=== PATIENT | female | born 1960 | race Caucasian/White ===

== ENCOUNTER 2017-12-12 09:16 | Emergency (ER) | payer SELFPAY ==
[2017-12-12 09:37] VITALS: BP 137/83
[2017-12-12 10:31] LABS: Basophils % (Auto) 0.7 % (0.0-1.8); Eosinophils # (Auto) 0.1 K/mm3 (0.0-0.4); Eosinophils % (Auto) 1.5 % (0.0-4.3); Hematocrit 40.5 % (30.3-42.9); Hemoglobin 14.4 gm/dl (10.1-14.3); Lymphocytes # (Auto) 1.8 K/mm3 (1.2-5.4); Lymphocytes % (Auto) 32.6 % (13.4-35.0); Mean Corpuscular HGB Conc 36 % (30-34); Mean Corpuscular Hemoglobin 33 pg (28-32); Mean Corpuscular Volume 91 fl (79-97); Monocytes # (Auto) 0.4 K/mm3 (0.0-0.8); Monocytes % (Auto) 6.9 % (0.0-7.3); Platelet Count 293 K/mm3 (140-440); Red Blood Count 4.43 M/mm3 (3.65-5.03); Red Cell Distribution Width 12.7 % (13.2-15.2)
--- NOTE | 2017-12-12 10:50 | Emergency Department Report ---
ED General Adult HPI - General Chief complaint: Abdominal Pain Stated complaint: RIGHT LOWER ABD PAIN Time Seen by Provider: 12/12/17 10:10 Source: patient Mode of arrival: Ambulatory Limitations: No Limitations, Language Barrier - History of Present Illness Initial comments: Patient is a 57-year-old female from the [facility] who states that she has a known right sided inguinal hernia. This is secondary to the surgery she had in the past. Patient states she is here working and states that when she is on her feet long periods of time the hernia gets bigger and gives him some discomfort. Patient states his Bensel no nausea vomiting or diarrhea. Patient states the discomfort has been worse for the past 4 days just because of her activities. Patient is here for a note stating that she does cannot go back to work and that she needs to have surgery. - Related Data Previous Rx's Medication Instructions Recorded Last Taken Type HYDROcodone/APAP 5-325 [Winston 1 each PO QHS PRN #10 tablet 01/13/15 Unknown Rx 5/325] Ibuprofen [Motrin] 800 mg PO Q8H PRN #21 tablet 01/13/15 Unknown Rx Sulfamethoxazole/Trimethoprim 1 each PO BID #14 tablet 01/13/15 Unknown Rx [Bactrim Ds] Allergies Allergy/AdvReac Type Severity Reaction Status Date / Time No Known Allergies Allergy Unverified 01/13/15 11:01 ED Review of Systems ROS: Stated complaint: RIGHT LOWER ABD PAIN Other details as noted in HPI Comment: All other systems reviewed and negative ED Past Medical Hx - Past Medical History Previous Medical History?: Yes Additional medical history: 1 vaginal delivery - Surgical History Past Surgical History?: Yes Additional Surgical History: 2 C-sections - Social History Smoking Status: Never Smoker Substance Use Type: Alcohol - Medications Home Medications: Home Medications Medication Instructions Recorded Confirmed Last Taken Type HYDROcodone/APAP 5-325 [Winston 1 each PO QHS PRN #10 tablet 01/13/15 Unknown Rx 5/325] Ibuprofen [Motrin] 800 mg PO Q8H PRN #21 tablet 01/13/15 Unknown Rx Sulfamethoxazole/Trimethoprim 1 each PO BID #14 tablet 01/13/15 Unknown Rx [Bactrim Ds] ED Physical Exam - General Limitations: No Limitations, Language Barrier General appearance: alert, in no apparent distress - Head Head exam: Present: atraumatic, normocephalic - Eye Eye exam: Present: normal appearance - ENT ENT exam: Present: mucous membranes moist - Neck Neck exam: Present: normal inspection - Respiratory Respiratory exam: Present: normal lung sounds bilaterally. Absent: respiratory distress, wheezes, rales, rhonchi - Cardiovascular Cardiovascular Exam: Present: regular rate, normal rhythm. Absent: systolic murmur, diastolic murmur, rubs, gallop - GI/Abdominal GI/Abdominal exam: Present: soft, normal bowel sounds, other (patient has a midline scar near the umbilicus. Patient is laying flat at the time of the exam and states that in the right inguinal area she does sometimes have a bulging which is not out at the moment.). Absent: distended, tenderness, guarding, rebound - Extremities Exam Extremities exam: Present: normal inspection - Back Exam Back exam: Present: normal inspection - Neurological Exam Neurological exam: Present: alert, oriented X3 - Psychiatric Psychiatric exam: Present: normal affect, normal mood - Skin Skin exam: Present: warm, dry, intact, normal color. Absent: rash ED Course Vital Signs 12/12/17 09:33 Temperature 99.2 F Pulse Rate 76 Respiratory 20 Rate Blood Pressure 137/83 O2 Sat by Pulse 100 Oximetry ED Medical Decision Making - Lab Data Result diagrams: 12/12/17 09:44 - Medical Decision Making Patient be discharged home at this time. Patient was given information regarding hernias and states that she does have a surgeon that she is going to follow with in the [facility]. Critical care attestation.: If time is entered above; I have spent that time in minutes in the direct care of this critically ill patient, excluding procedure time. ED Disposition Clinical Impression: Hernia Disposition: DC-01 TO HOME OR SELFCARE Is pt being admited?: No Does the pt Need Aspirin: No Condition: Stable Instructions: Inguinal Hernia (ED) Forms: Work/School Release Form(ED)
[2017-12-12 11:03] LABS: Alanine Aminotransferase 12 units/L (7-56); Albumin 4.3 g/dL (3.9-5); BUN/Creatinine Ratio 23; Blood Urea Nitrogen 14 mg/dL (7-17); Calcium 9.2 mg/dL (8.4-10.2); Hemolysis Index 3; Lipase 35 units/L (13-60)
[2017-12-12 11:45] LABS: Bilirubin,Urine NEG (Negative); Blood,Urine NEG (Negative); Color,Urine Yellow (Yellow); Mucus,Urine 1+ /HPF; Protein,Urine <15 mg/dL mg/dL (Negative); Urobilinogen,Urine < 2.0 mg/dL (<2.0); WBC,Urine < 1.0 /HPF (0.0-6.0)
== END 2017-12-12 11:01 | disposition home or self-care (01) ==
LOC: ED 09:16
DX: K46.9 Unspecified abdominal hernia without obstruction or gangrene (principal)
CPT/HCPCS: 36415; 80053; 81001; 83690; 85025; 99283

== ENCOUNTER 2017-12-23 12:50 | Emergency (ER) | payer SELFPAY ==
[2017-12-23 13:44] VITALS: BP 151/85
--- NOTE | 2017-12-23 16:41 | Emergency Department Report ---
ED Female HPI - General Chief complaint: Abdominal Pain Stated complaint: ABDOMINAL PAIN Time Seen by Provider: 12/23/17 15:53 Source: patient Mode of arrival: Ambulatory Limitations: No Limitations - History of Present Illness Initial comments: 57-year-old female with a recent diagnosis of right inguinal hernia presents to the hospital complaining of continued right inguinal pain especially while working. Patient expresses her frustration with her previous visits and feels like she was thoroughly examined was not told about her lab results. Hernia does make urine and smaller and appears to be reducible when lying flat and exacerbated while up on her feet at work. Nausea, vomiting, constipation, or fever. Pain is not present at this time. She is concerned because she's had the symptoms for 2 weeks, they are not improving, she has never had these previously - Related Data Previous Rx's Medication Instructions Recorded Last Taken Type HYDROcodone/APAP 5-325 [[place] 1 each PO QHS PRN #10 tablet 01/13/15 Unknown Rx 5/325] Ibuprofen [Motrin] 800 mg PO Q8H PRN #21 tablet 01/13/15 Unknown Rx Sulfamethoxazole/Trimethoprim 1 each PO BID #14 tablet 01/13/15 Unknown Rx [Bactrim Ds] Allergies Allergy/AdvReac Type Severity Reaction Status Date / Time No Known Allergies Allergy Unverified 01/13/15 11:01 ED Review of Systems ROS: Stated complaint: ABDOMINAL PAIN Other details as noted in HPI Comment: All other systems reviewed and negative ED Past Medical Hx - Past Medical History Previous Medical History?: No Additional medical history: 1 vaginal delivery - Surgical History Past Surgical History?: No Additional Surgical History: 2 C-sections - Social History Smoking Status: Never Smoker Substance Use Type: None - Medications Home Medications: Home Medications Medication Instructions Recorded Confirmed Last Taken Type HYDROcodone/APAP 5-325 [[place] 1 each PO QHS PRN #10 tablet 01/13/15 Unknown Rx 5/325] Ibuprofen [Motrin] 800 mg PO Q8H PRN #21 tablet 01/13/15 Unknown Rx Sulfamethoxazole/Trimethoprim 1 each PO BID #14 tablet 01/13/15 Unknown Rx [Bactrim Ds] ED Physical Exam - General Limitations: No Limitations - Other Other exam information: General: No limitations, patient is alert in no acute distress Head exam: Atraumatic, normocephalic Eyes exam: Normal appearance ENT: Moist mucous membrane, normal oropharynx Neck exam: Normal inspection, full range of motion, no meningismus nontender Respiratory exam: Clear to auscultation bilateral, no wheezes, rales, crackles Cardiovascular: Normal rate and rhythm, normal heart sounds Abdomen: Soft, nondistended, reducible right inguinal hernia. Vertical C- section scar noted. Extremity: Full range of motion normal inspection no deformity Back: Normal Inspection, full range of motion, no tenderness Neurologic: Alert, oriented x3, cranial nerves intact, no motor or sensory deficit Psychiatric: normal affect, normal mood Skin: Warm, dry, intact ED Course Vital Signs 12/23/17 13:40 Temperature 98.9 F Pulse Rate 77 Blood Pressure 151/85 O2 Sat by Pulse 100 Oximetry ED Medical Decision Making - Medical Decision Making Right inguinal hernia Reducible Abdomen nontender I spent extensive time explaining patient's diagnosis, going over her previous lab work, explaining the signs of incarceration and strangulation/reasons to return for worsening hernia symptoms, importance of follow up with surgeon, and provided a picture as well as explanation of a hernia belt to be used while at work. I stressed that although she has never had this before she has now and it would not get better until definitive surgery is performed. Patient expresses that she is uninsured. Referral to surgeon affiliated here as well as [facility] will be provided so that patient may explore several options for treatment. I explained several times that this condition becomes emergent if the hernia is no longer reducible and she has associated symptoms as indicated by her discharge instructions. Patient voices understanding and appears to be satisfied with explanation. copy of labs provided to pt - Differential Diagnosis hernia: reducible vs strangulated vs incarcerated Critical Care Time: No Critical care attestation.: If time is entered above; I have spent that time in minutes in the direct care of this critically ill patient, excluding procedure time. ED Disposition Clinical Impression: Reducible right inguinal hernia Disposition: DC-01 TO HOME OR SELFCARE Is pt being admited?: No Does the pt Need Aspirin: No Condition: Stable Instructions: Inguinal Hernia (ED) Additional Instructions: Get a hernia belt from your pharmacy for support while you are at work. Return if symptoms worsen as indicated by the discharge instructions. Follow up with a surgeon for treatment of your hernia. You may contact either resources provided. Obtenga un cinturn de hernia de lua farmacia para recibir ayuda mientras est en el trabajo. Regrese si los sntomas empeoran segn lo indicado por las instrucciones de descarga. Rafael un seguimiento con un cirujano para el tratamiento de lua hernia. Puede contactar cualquiera de los recursos provistos. Referrals: GAURAV SHEEHAN DO [Staff Physician] - 3-5 Days [facility] [Outside] - 3-5 Days Time of Disposition: 16:44 Print Language: SLOVAK
== END 2017-12-23 16:53 | disposition home or self-care (01) ==
LOC: ED 12:50
DX: K40.90 Unilateral inguinal hernia, without obstruction or gangrene, not specified as recurrent (principal)
CPT/HCPCS: 99281